=== PATIENT | female | born 1980 | race African-American/Black ===

== ENCOUNTER → 2024-03-27 | Outpatient (CLI) | payer BC | END | disposition home or self-care (01) | LOC: LAB 15:48 | PROVIDERS: ATTEND Nurse Practitioner Family | DX: Z20.822 Contact with and (suspected) exposure to COVID-19 (principal) ==

== ENCOUNTER 2024-04-24 10:00 | Emergency (ER) | payer BC ==
[~2024-04-24] VITALS: Ht 180.3 cm; Wt 131.3 kg
[2024-04-24] MEDS ORDERED: IBUPROFEN 400 MG TAB PO ONE (10:30)
[2024-04-24] MEDS ORDERED: Lidocaine Hydrochloride 5 ML AMP SC ONE (10:30)
[2024-04-24] MEDS ORDERED: ACETAMINOPHEN 325 MG TAB PO ONE (10:30)
[2024-04-24] MEDS ORDERED: Motrin,Rufen400 MG PO (11:11)
[2024-04-24] MEDS ORDERED: TYLENOL EXTRA500 MG PO (11:11)
[2024-04-24] MEDS ORDERED: ASPERCREME LID1 EACH T (11:11)
== END 2024-04-24 11:22 | disposition home or self-care (01) ==
LOC: ED 10:00
DX: M54.42 Lumbago with sciatica, left side (principal); M79.605 Pain in left leg